=== PATIENT | female | born 1995 ===

== ENCOUNTER 2019-09-18 21:12 | Outpatient (CLI) | payer OTHER, MEDICAID ==
[2019-09-18 21:34] VITALS: BP 126/74
[2019-09-18] MEDS ORDERED: LACTATED RINGERS 1,000 ML ONE (21:37)
[2019-09-18] MEDS ORDERED: LACTATED RINGERS 1,000 ML IV ONE (21:42)
[2019-09-18 21:59] LABS: Bacteria,Urine 2+ /HPF (Negative); Bilirubin,Urine NEG (Negative); Blood,Urine NEG (Negative); Calcium Oxalate Crystals,Urine 3+; Color,Urine Yellow (Yellow); Mucus,Urine FEW /HPF; Protein,Urine <15 mg/dL mg/dL (Negative)
== END 2019-09-18 22:35 | disposition home or self-care (01) ==
LOC: TRG 21:12
PROVIDERS: ATTEND Obstetrics & Gynecology
DX: O26.893 Other specified pregnancy related conditions, third trimester (principal); R10.11 Right upper quadrant pain; O99.353 Diseases of the nervous system complicating pregnancy, third trimester; G43.909 Migraine, unspecified, not intractable, without status migrainosus; Z3A.33 33 weeks gestation of pregnancy
CPT/HCPCS: 59025; 81001; 87086; J7120

== ENCOUNTER 2019-09-23 22:39 | Outpatient (CLI) | payer OTHER, MEDICAID ==
[2019-09-23 23:09] VITALS: BP 114/59
[2019-09-24] MEDS ORDERED: LACTATED RINGERS 500 ML IV ONE (01:00)
== END 2019-09-24 00:30 | disposition home or self-care (01) ==
LOC: TRG 22:39
PROVIDERS: ATTEND Obstetrics & Gynecology
DX: O47.03 False labor before 37 completed weeks of gestation, third trimester (principal); Z3A.34 34 weeks gestation of pregnancy
CPT/HCPCS: 59025